=== PATIENT | male | born 1985 | race Two or more races ===

== ENCOUNTER 2024-12-08 10:06 | Emergency (ER) | payer OTHER ==
[~2024-12-08] VITALS: Ht 175.3 cm; Wt 91.6 kg
[2024-12-08 10:59] VITALS: BP 108/69; PULSE 76; RESP 16; TEMP 98; O2SAT 97
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
[2024-12-08] MEDS ORDERED: BACL10TA PO (11:25)
[2024-12-08] MEDS ORDERED: IBUP-1456 PO (11:25)
[2024-12-08] MEDS: KETOROLAC TROMETH 60MG/2ML VIAL IM ONE (11:29)
== END 2024-12-08 11:35 | disposition home or self-care (01) ==
LOC: ER 10:06
DX: S16.1XXA Strain of muscle, fascia and tendon at neck level, initial encounter (principal); S29.011A Strain of muscle and tendon of front wall of thorax, initial encounter; Z88.0 Allergy status to penicillin; V49.88XA Car occupant (driver) (passenger) injured in other specified transport accidents, initial encounter; Y93.I9 Activity, other involving external motion; Y92.488 Other paved roadways as the place of occurrence of the external cause; Y99.8 Other external cause status
CPT/HCPCS: 71101; 72040; 96372; 99284; J1885